=== PATIENT | male | born 1955 | race Caucasian/White ===

== ENCOUNTER 2022-07-26 15:21 | Emergency (ER) | payer MEDICARE, OTHER ==
[2022-07-26] MEDS ORDERED: Sodium Chloride 0.9% 10 ML Syringe FLUSH PRN (16:11)
[2022-07-26] MEDS ORDERED: Ondansetron 4 MG/2 ML SDV IVPUSH ONE ×2 (16:11→19:10)
[2022-07-26] MEDS ORDERED: Sodium Chloride 0.9% 1,000 ML IV SCH ×2 (16:15→19:00)
[2022-07-26 16:24] LABS: ESTIMATED GFR 66 mL/min (>60)
[2022-07-26] MEDS ORDERED: Morphine 4 MG/ML VIAL IVPUSH ONE ×2 (16:28→19:10)
[2022-07-26] MEDS ORDERED: Iopamidol 755 Mg/ML 100 ML Bottle IV ONE (17:11)
[2022-07-26] MEDS ORDERED: Scopolamine 1.5 MG Transdermal Patch TRDERM PRN (18:31)
[2022-07-26] MEDS ORDERED: Scopolamine 1.5 MG Transdermal Patch TOP ONE (18:37)
== END 2022-07-26 21:18 ==
LOC: FB.ED 15:21
DX: K56.609 Unspecified intestinal obstruction, unspecified as to partial versus complete obstruction (principal); K83.1 Obstruction of bile duct; J45.909 Unspecified asthma, uncomplicated; Z72.0 Tobacco use; Z90.49 Acquired absence of other specified parts of digestive tract
CPT/HCPCS: 36415; 74018; 74177; 80053; 81001; 82150; 83605; 83690; 85025; 87086; 93010; 96361; 96374; 96375; 96376; 99285; 99285-25; A9270-GY; J2270; J2405; J3490; J7030; Q9967